=== PATIENT | male | born 1950 | race Caucasian/White ===

== ENCOUNTER 2020-05-28 21:18 | Emergency (ER) | payer OTHER ==
[~2020-05-28] VITALS: Ht 160 cm; Wt 55.8 kg
[~2020-05-28 21:18] MED LIST: ACETAMINOPHEN325 M1 PO; ACID CONTROL20 MG PO; ADULT LOW DOSE81 MG PO; ALDACTONE25 MG PO; AMBIEN 5 MG TABL5 M1 PO; AMITIZA 24 MCG24 MCG PO; ASPIRIN EC81 M1 PO; ATIVAN0.5 MG PO; ATIVAN1 MG PO; CALCIUM + D3 E1 EACH; CARVEDILOL6.25 MG PO; COLACE 100 MG100 MG PO; COLACE100 MG PO; COREG CR20 MG PO; COZAAR 25 MG TA25 M1 PO; COZAAR 50 MG TA50 M2 PO; CRESTOR10 MG PO; DESYREL150 MG PO; DESYREL50 MG PO; DUONEB 2.5-0.5 M3 ML INH; EFFEXOR XR75 MG PO; FLOMAX0.4 MG PO; GABAPENTIN 100100 MG PO; GLUCOPHAGE500 MG PO; GLUCOSE4 GM PO; HYDROCODONE-AP1 EAC6 PO; IMDUR 30 MG TAB30 M1 PO; IMODIUM MULTI-1 EACH PO; LASIX 40 MG TAB40 M2 PO; LIPITOR40 MG PO; LMX 530 GM TP; LOPRESSOR50 PO; MIRALAX17 G1 PO; MIRALAX17 GM PO; MOM PO; NEURONTIN 300M300 M2 PO; NITROGLYCERIN0.4 MG SL; NITROGLYCERIN0.4 MG SUBLING; ONDANSETRON HCL4 M2 PO; OXYCODONE HCL15 MG PO; OXYCODONE HCL5 MG PO; PAIN & FEVER500 MG PO; PERCOCET PO; PHOSLO667 MG PO; POTASSIUM20 PO; PREDNISONE 20 M20 M1 PO; PREDNISONE 5 MG5 MG PO; RANEXA500 MG PO; REMERON15 MG PO; RISPERDAL 3 MG T3 M1 PO; RISPERDAL2 MG PO; ROXICODONE5 M1 PO; SENNA PO; SIMETHICON CHEW80 M1 PO; TIZANIDINE HCL2 M1 PO; TUMS PO; VENLAFAXINE HCL25 MG PO; VITAMIN B-12500 MCG PO; VITAMIN D31000 UNI2 PO; XALATAN2.5 ML OPHTHALMIC; XARELTO20 MG PO
[2020-05-28 22:27] LABS: CALCIUM 7.4 mg/dL (8.5-10.1); CREATININE 1.5 mg/dL (0.7-1.3); POTASSIUM 3.8 mmol/L (3.5-5.1)
[2020-05-28 22:30] LABS: URIC ACID* 8.1 mg/dL (3.5-7.2)
[2020-05-28] MEDS ORDERED: PREDNISONE 20 M20 MG PO (23:05)
[2020-05-28] MEDS ORDERED: TRAMADOL 50 MG50 MG PO (23:05)
[2020-05-28 23:50] VITALS: BP 139/79
== END 2020-05-28 23:51 | disposition home or self-care (01) ==
LOC: ER 21:18
PROVIDERS: Emergency Medicine
DX: M10.9 Gout, unspecified (principal); I13.0 Hypertensive heart and chronic kidney disease with heart failure and stage 1 through stage 4 chronic kidney disease, or unspecified chronic kidney disease; N18.9 Chronic kidney disease, unspecified; I50.9 Heart failure, unspecified; I25.2 Old myocardial infarction; I25.10 Atherosclerotic heart disease of native coronary artery without angina pectoris; Z95.0 Presence of cardiac pacemaker; Z79.899 Other long term (current) drug therapy; Z79.82 Long term (current) use of aspirin

== ENCOUNTER 2020-06-27 03:00 | Inpatient (IN) | payer OTHER ==
[~2020-06-27] VITALS: Ht 160 cm; Wt 63.0 kg
[2020-06-27] VITALS (8 sets, daily range): BP systolic 107–140; BP diastolic 64–90
[~2020-06-27 03:00] MED LIST changes: +PREDNISONE 20 M20 MG PO; +TRAMADOL 50 MG50 MG PO
[2020-06-27 03:33] LABS: ABSOLUTE NEUTROPHILS 4.5 thou/uL (1.4-8.2); BASOPHILS 0.6 % (0.0-2.0); EOSINOPHILS 1.1 % (0.0-3.0); HEMATOCRIT 30.8 % (42.0-52.0); HEMOGLOBIN 10.1 gm/dL (14.0-18.0); MCH 29.6 pg (26.0-34.0); MCHC 32.7 g/dL (28.0-37.0); MCV 90.6 fL (80.0-100.0); MONOCYTES 7.3 % (1.0-8.0); PLATELET COUNT 132 thou/uL (150-400); RDW 15.8 % (10.5-14.5); WBC 6.5 thou/uL (4.0-11.0)
[2020-06-27 03:51] LABS: ALBUMIN 2.9 g/dL (3.4-5.0); CALCIUM 6.4 mg/dL (8.5-10.1); CREATININE 1.3 mg/dL (0.7-1.3); TOTAL BILIRUBIN 0.6 mg/dL (0.2-1.0); TOTAL PROTEIN 6.2 g/dL (6.4-8.2); TROPONIN-I 0.06 ng/mL (<0.06)
--- NOTE | 2020-06-27 04:01 | NUR ---
UNABLE TO OBTAIN CURRENT MED LIST. WILL NEED FURTHER CLARIFICATION OF MEDS FROM PHARMACY WHEN AVAILABLE.
[2020-06-27 04:04] LABS: POTASSIUM 2.4 mmol/L (3.5-5.1)
--- NOTE | 2020-06-27 05:09 | NUR ---
CARLITO Wen from [facility] called to let us know he could not find any information regarding Pt's medications. RN advised to call after 7 this am
[2020-06-27 06:48] LABS: CHOLESTEROL 115 mg/dL (<200); HDL CHOLESTEROL 42 mg/dL (>40); LDL CHOLESTEROL 55 mg/dL (<100); TC:HDL 2.7 Ratio (Not establshd); TRIGLYCERIDE 90 mg/dL (<150); VLDL 18 mg/dL (<40)
[2020-06-27 06:53] LABS: SERUM ASSESSMENT Clear
--- NOTE | 2020-06-27 07:29 | NUR ---
PT ARRIVED TO UNIT APPROX 0600, WALKED FROM ED CART TO BED; ASSISTED TO PUT ON HOSPITAL GOWN, PLACED ON TELE, VS COMPLETED, AND IV FLUIDS STARTED. PT A&Ox4 BUT ANXIOUS, ESPECIALLY REGARDS HIS MEDICAL CONDITION. REQUESTED TO TALK WITH A SHEET FINISHER. REPORTS CHEST PAIN THAT RADIATES DOWN HIS LEFT ARM, MUSCLE WEAKNESS, TWITCHING AROUND HIS EYE, AND NAUSEA. PT DYSPNIC, REPORTS WEARING 3L O2 PRN AT HOME, PLACED ON 3L HERE WHICH HE STATED HELPED. PT HAS AN ILEOSTOMY. REPORT GIVEN AT 0700.
--- NOTE | 2020-06-27 08:06 | EKG ---
[facility] [place] [address] ELECTROCARDIOGRAM REPORT Name: LAN JAIME III Room #: 354-P ADM IN M.R.#: [id number] Admission: 06/27/20 Attend Phys: Pankaj High MD Discharge: Date of : 54 Report #: [id number] THIS REPORT FOR: cc: [facility] - Clinic physician unknown [facility] - Clinic physician unknown Fransisco Vargas MD [facility] THIS REPORT FOR: //name// 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: YAJAIRA : 1950 Requested By: Aric Evangelista Order Number: [id number] MD: Fransisco Vargas Measurements Intervals [place] Rate: 60 P: TN: QRS: 212 QRSD: 168 T: 132 QT: 470 QTc: 470 Interpretive Statements Ventricular pacing with occasional intrinsic depolarizations No further analysis attempted due to paced rhythm Compared to ECG 02/27/2016 15:47:32 No significant changes Electronically Signed On 06-27-2020 8:06:19 CDT by Fransisco Vargas [email or web address] <ELECTRONICALLY SIGNED> By: Fransisco Vargas MD, FACC 06/27/20 0806 Fransisco Vargas MD, [facility] /EPI
[2020-06-27 12:43] LABS: CALCIUM 6.5 mg/dL (8.5-10.1); CREATININE 1.3 mg/dL (0.7-1.3); TROPONIN-I 0.07 ng/mL (<0.06)
--- NOTE | 2020-06-27 15:49 | NUR ---
PT CARE ASSUMED AT 0700, PT GOT ADMITTED AROUND 0600, PT ALERT AND ORIENTED X4, DENIES NAUSEA AND VOMITTING. PT COMPLAINS OF CHEST PAIN, DEXCRIBES IT JUDI ON THE LEFT SIDE OF HIS CHEST AND SHOULDER. CARDIOLOGY IS CONSULTED AND AWARE. PT HAS A AICD. TELEMETRY SHOWING V PACED. CONSENTS SIGNED. PT HAS AN ILEOSTOMY DUE TO HX OF CANCER. PT USES URINAL. PT STATES HE GETS AROUND WITH A WALKER OR WHEELCHAIR. PT DENIES ANY NEEDS MIKE. WILL CONTINUE TO MONITOR.
--- NOTE | 2020-06-27 16:45 | NUR ---
INITIAL ASSESSMENT: Consult received. MEGHAN reviewed chart and spoke with nursing. Pt was admitted from [facility] due to hypokalemia/chest pain. Cardiology consulted. Pt placed in Enhanced Isolation to r/o COVID-19. Pt's test is currently pending. Pt is afebrile and on 3L of O2. MEGHAN placed call to pt's room. Line was busy. MEGHAN left voice message for pt's dtr/DPOA, Lizy. Per chart, pt lives at [facility]. He moved in last month and is currently on service with [facility]. SW received face sheet from and faxed to [facility], as pt was showing at patient pay. Pt's PCP is Dr. Chaya Mayo. MEGHAN is following to assist as needed with discharge planning.
[2020-06-27] MEDS ORDERED: OMEPRAZOLE 20 M20 M1 PO (16:59)
[2020-06-27] MEDS ORDERED: CARVEDILOL12.5 MG PO (17:01)
[2020-06-27] MEDS ORDERED: ACIDOPHILUS LA1 EAC1 PO (17:10)
[2020-06-27] MEDS ORDERED: POTASSIUM20 PO (17:13)
[2020-06-27] MEDS ORDERED: SYMBICORT160 MCG/4. INH (17:18)
[2020-06-27] MEDS ORDERED: TYLENOL325 M1 PO (18:05)
[2020-06-27] MEDS ORDERED: VITAMIN B-121000 MC2 PO (18:07)
[2020-06-27] MEDS ORDERED: PROAIR HFA8.5 GM INH (18:09)
--- NOTE | 2020-06-27 21:16 | NUR ---
PT RESTING IN BED WATCHING TV. TELLING JOKES WITH TO NURSE. NO C/O PAIN. PT ON R/A 96%. LUNGS WITH WHEEZES. IVF INTACT. PT HAD HS SNACK. PT USING URINAL AT BEDSIDE. BED ALARM ON. 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 HE ALSO STATED ONCE HE WAS OUT OF THE HE WORKED AT THE [employer] FOR 30 YEARS.
--- NOTE | 2020-06-27 23:31 | NUR ---
REPORT CALLED TO 2N PT TRANSFERRING TO 211. PT NOTIFIED. PT HAD ALL OF HIS BELONGINGS TAKEN WITH HIM.
[2020-06-28 00:06] LABS: GLYCOHEMOGLOBIN (HGB A1C) 5.1 % (4.8-5.6)
[2020-06-28 00:11] VITALS: BP 126/82
--- NOTE | 2020-06-28 01:21 | NUR ---
ASSESSMENTS CHARTED, MEDS CHARTED GIVEN. PATIENT TRANSFERED FROM 3W AFTER SECOND COVID TEST CAME BACK NEGATIVE. C/O CP HYPOKALEMIA AND ICD NOT WORKING CORRECTLY WAS THE ORIGINAL REASON FOR COMING IN.C/O CHEST PAIN THAT SOMETIMES GET WORSE WITH INSPIRATION. PATIENT IS SCHEDULED FOR THE WRAPPER STRIPPER IN THE MORNING. NPO SINCE MIDNIGHT FOR PROCEDURE. V-PACED ON TELEMETRY, ON ROOM AIR, PATIENT TAKING CARE OF ILIOSTOMY. FALL PRECAUTIONS IN PLACE.
[2020-06-28 05:36] LABS: CALCIUM 6.6 mg/dL (8.5-10.1); CREATININE 1.4 mg/dL (0.7-1.3); MAGNESIUM 1.7 mg/dL (1.8-2.4); POTASSIUM 3.3 mmol/L (3.5-5.1)
[2020-06-28 05:37] VITALS: BP 117/77
[2020-06-28 06:04] LABS: HEMATOCRIT 27.6 % (42.0-52.0); HEMOGLOBIN 9.1 gm/dL (14.0-18.0); MCH 29.6 pg (26.0-34.0); MCHC 33.1 g/dL (28.0-37.0); MCV 89.4 fL (80.0-100.0); RBC 3.09 mil/uL (4.50-6.00); RDW 15.5 % (10.5-14.5); WBC 5.1 thou/uL (4.0-11.0)
[2020-06-28 07:03] VITALS: BP 101/59
--- NOTE | 2020-06-28 09:48 | 2DMMODE ---
[facility] [address] [place] [address] 2 D/M-MODE ECHOCARDIOGRAM Name: LAN JAIME [facility] Room #: 211-P ADM IN M.R.#: [id number] Admission: 06/27/20 Attend Phys: Pankaj High MD Discharge: Date of : 54 Report #: [id number] THIS REPORT FOR: cc: [facility] - Clinic physician unknown [facility] - Clinic physician unknown Manuel Zaragoza MD ~ APPROVED REPORT Study performed: 06/28/2020 08:42:25 EXAM: Comprehensive 2D, Doppler, and color-flow Echocardiogram Patient Location: Bedside Room #: 211 Status: routine BSA: 1.65 HR: 63 bpm BP: 101/59 mmHg Rhythm: Atrial Fibrillation Other Information Study Quality: Good Indications Chest Pain Hx: MA, stents, CHF, AICD, HTN, HLP, CA, Afib. 2D Dimensions RVDd: 42.14 mm IVSd: 12.87 (7-11mm) LVOT Diam: 22.09 (18-24mm) LVDd: 68.00 mm PWd: 10.76 (7-11mm) Ascending Ao: 38.74 (22-36mm) LVDs: 59.69 (25-40mm) Aortic Root: 32.39 mm Volumes Left Atrial Volume (Systole) Single Plane 4CH: 61.08 mL Single Plane 2CH: 84.14 mL LA ESV Index: 49.00 mL/m2 Aortic Valve AoV Peak Elvin.: 1.34 m/s AO Peak Gr.: 7.23 mmHg LVOT Max P.70 mmHg LVOT Max V: 0.96 m/s MATEUSZ Vmax: 2.74 cm2 [facility] [address] [place] [address] 2 D/M-MODE ECHOCARDIOGRAM Name: LAN JAIME [facility] Room #: 211-P ADM IN Flavia.#: [id number] Admission: 06/27/20 Attend Phys: Pankaj High MD Discharge: Date of : 54 Report #: [id number] Mitral Valve MV Decel. Time: 148.49 ms MV E Max Elvin.: 1.19 m/s Pulmonary Valve PV Peak Elvin.: 0.81 m/s PV Peak Gr.: 2.62 mmHg Tricuspid Valve TR Peak Elvin.: 2.99 m/s RAP Estimate: 5.00 mmHg TR Peak Gr.: 36.00 mmHg PA Pressure: 41.00 mmHg Left Ventricle Left ventricle is dilated. Mild septal hypertrophy is present. Left ventricular systolic function is severely decreased. LVEF is 25%. This study is not technically sufficient to allow evaluation of the LV diastolic function due to atrial fibrillation. Right Ventricle The right ventricle is normal size. Device lead is present in the right ventricle. Atria Left atrium is severely dilated. Right atrium is mildly dilated. Aortic Valve Aortic valve is mildly calcified. Mild aortic regurgitation. There is no aortic valvular stenosis. Mitral Valve The mitral valve is normal in structure. Severe mitral regurgitation No evidence of mitral valve stenosis. Tricuspid Valve The tricuspid valve is normal in structure. Mild tricuspid regurgitation. Estimated PAP is 40-45mmHg. Pulmonic Valve The pulmonary valve is normal in structure. Trace pulmonic regurgitation. Great Vessels The aortic root is normal in size. The ascending aorta is normal in size. IVC is normal in size and collapses >50% with [facility] [address] [place] [address] 2 D/M-MODE ECHOCARDIOGRAM Name: [facility] Room #: [address] [place] [address] IN M.R.#: [id number] Admission: 06/27/20 Attend Phys: Pankaj High MD Discharge: Date of : 54 Report #: [id number] inspiration. Pericardium There is no pericardial effusion. <Conclusion> Left ventricle is dilated. Left ventricular systolic function is severely decreased. Device lead is present in the right ventricle. Left atrium is severely dilated. Mild aortic regurgitation. Severe mitral regurgitation Mild tricuspid regurgitation. Estimated PAP is 40-45mmHg. <ELECTRONICALLY SIGNED> By: Manuel Zaragoza MD 06/28/2048 7 7 Manuel Zaragoza MD /INF
--- NOTE | 2020-06-28 09:55 | NUR ---
OSTOMY CARE; ALERT, COOPERATIVE, DID NOT BRING OSTOMY SUPPLIES TO HOSP, STATES HE IS DID NOT KNOW HE WAS GOING TO HAVE TO STAY, POUCH EDGES LOOSE, ASSISTED W/ CHANGING APPLIANCE, STOMA PINK VIABLE BUDDED, PERISTOMAL SKIN INTACT, SOFT BROWN STOOL NOTED,USES DIGNA PRODUCTS AT HOME, DIGNA CUT TO FIT POUCH APPLIED W/ ADAPT RING UNDER WAFER. SUPPLIES LEFT AT BS, PT ABLE TO EMPTY POUCH ON OWN, WILL FOLLOW PRN
[2020-06-28 11:40] VITALS: BP 90/61
--- NOTE | 2020-06-28 13:00 | NUR ---
Met and sp with patient he likes to be called Shoe. He resides at [facility] [place]. [facility] He reports usu on 3 liters and uses as needed. 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
[2020-06-28 15:31] VITALS: BP 112/77
--- NOTE | 2020-06-28 16:52 | NUR ---
ASSESSMENT CHARTED - MEDS PER DEC - VASU DIET AND FLUIDS. NO CO'S OF NAUSEA. UP AT SIDE OF BED TO VOID. ECHO COMPLETED THIS AM. RESULTS IN CHART. PT / OT CONSULT - NOT SEEN TODAY. PT WITH CO'S OF "CHEST PAIN" GIVEN MS AND IBPROFEN WITH MIN RELIEF. IV FLUIDS D/C'D ORDERED. NO CO'S AT THE PRESENT TIME. APPEARS TO BE RESTING COMFORTABLY.
[2020-06-28 19:44] VITALS: BP 107/72
[2020-06-29 00:10] VITALS: BP 119/72
--- NOTE | 2020-06-29 04:50 | NUR ---
PT IS ALERT AND ORIENTED X4. COMPLAINS OF SLIGHT CHEST PAIN BUT THEN I GO IN THERE AND HE IS SLEEPING. NAPROXEN GIVEN FOR NURSE PRACTIONER. PT SLEEPING. LUNGS ARE CLEAR ON ROOM AIR. TRIED TO REFUSE LABS BUT THEN EXPLAIN TO PT NEED THOSE TO SEE IF HE CAN GO HOME. PT HAS A COLOSTOMY BAG WITH YELLOW STOOL NOTED. WILL CONTINUE TO MONITOR AND ASSESS PER NURSING.
[2020-06-29 05:36] VITALS: BP 118/77
[2020-06-29 06:33] LABS: CALCIUM 7.1 mg/dL (8.5-10.1); CREATININE 1.5 mg/dL (0.7-1.3); MAGNESIUM 1.7 mg/dL (1.8-2.4)
[2020-06-29 07:30] VITALS: BP 126/80
[2020-06-29 10:49] VITALS: BP 126/80
--- NOTE | 2020-06-29 11:04 | NUR ---
PT ON SERVICE WITH [facility] FAXED REFERRAL TO [facility] AT DISCHARGE SPOKE WITH EMILY IN INTAKE SHE RECEIVED UPDATE AND WILL [facility] AT DC.
[2020-06-29 11:45] VITALS: BP 114/72
[2020-06-29] MEDS ORDERED: IMDUR 30 MG TAB30 M1 PO (12:23)
[2020-06-29] MEDS ORDERED: MAGNESIUM400 MG PO (12:23)
[2020-06-29 12:56] LABS: BE(vivo) -8.1 mmol/L (-2 to +3); HCO3 16.3 mmol/L (22.0-26.0); PCO2 29.3 mmHg (35.0-45.0); PO2 98.1 mmHg (80.0-100.0); pH 7.362 (7.360-7.450); sO2 97.3 % (92.0-98.0)
--- NOTE | 2020-06-29 14:35 | NUR ---
ASSESSMENT CHARTED CHARTED. PT ALERT AND ORIENTED WITH FORGETFULNESS. VSS. REPORT FEELING MUCH BETTER TODAY. SEEN BY DR. HEMPHILL. ORDERS GIVEN TO DISCHARGE PT TO HOME WITH HH. DISCHARGE INSTRUCTIONS GIVEN TO PT. PT VERBERLISED UNDERSTANDING.
== END 2020-06-29 14:46 | disposition home health service (06) | DRG 302 ==
LOC: ER 03:00 → 3W 04:49 → EROBS 04:49 → 2N 04:49 → 3W 06:03 → 2N 23:59
PROVIDERS: Emergency Medicine; Nurse Practitioner; Nurse Practitioner Family; ADMIT Internal Medicine; ATTEND Internal Medicine
DX: I25.110 Atherosclerotic heart disease of native coronary artery with unstable angina pectoris (principal); J96.01 Acute respiratory failure with hypoxia; I13.0 Hypertensive heart and chronic kidney disease with heart failure and stage 1 through stage 4 chronic kidney disease, or unspecified chronic kidney disease; I48.91 Unspecified atrial fibrillation; E78.00 Pure hypercholesterolemia, unspecified; E78.5 Hyperlipidemia, unspecified; I50.9 Heart failure, unspecified; F43.10 Post-traumatic stress disorder, unspecified; F20.9 Schizophrenia, unspecified; E87.6 Hypokalemia; E83.42 Hypomagnesemia; G47.33 Obstructive sleep apnea (adult) (pediatric); N18.3 Chronic kidney disease, stage 3 (moderate); Z20.828 Contact with and (suspected) exposure to other viral communicable diseases; Z79.01 Long term (current) use of anticoagulants; Z79.82 Long term (current) use of aspirin; I25.2 Old myocardial infarction; Z79.899 Other long term (current) drug therapy; Z95.5 Presence of coronary angioplasty implant and graft; Z95.810 Presence of automatic (implantable) cardiac defibrillator; Z90.49 Acquired absence of other specified parts of digestive tract; Z93.3 Colostomy status
CPT/HCPCS: 10081; 10879